=== PATIENT | female | born 1970 | race Caucasian/White ===

== ENCOUNTER → 2018-02-08 15:45 | Outpatient (CLI) | payer BC, SELFPAY ==
--- NOTE | 2018-02-08 15:50 | RAD_ITS ---
STUDY: X-RAY CHEST REASON FOR EXAM: Female, 47 years old. Shortness breath for 6 months. Cough. TECHNIQUE: PA and lateral views of the chest. COMPARISON: March 28, 2004. FINDINGS: The lungs are clear and expanded. There is no demonstrated pleural abnormality. Normal size heart. Normal mediastinum and daren. Normal visualized pulmonary arteries. Normal visualized aortic arch and descending thoracic aorta. Normal visualized thoracic spine. Normal visualized ribs, clavicles, and shoulders. There is no demonstrated abnormality of the visualized soft tissue structures of the upper abdomen. RAD/Chest PA and Lateral IMPRESSION: No acute cardiopulmonary disease or major interval change. Electronically Signed: Harinder Mg DO at 16:13 EDT Tel [phone], Service support ,
[2018-02-08 17:13] LABS: Absolute Lymphocyte Count 2.14 X10^3/ul (0.83-4.51); Absolute Neutrophil Count 6.3 X10^3/uL (2.0-7.7); Basophil# 0.02 X10^3/uL; Basophil% 0.2 % (0-1); Eosinophil# 0.23 X10^3/uL; Eosinophils% 2.5 % (0-5); Hemoglobin 13.7 g/dl (12.0-15.0); Lymphocyte # 2.14 X10^3/ul (4.0); Lymphocyte % 23.4 % (19-41); Mean Corp Hgb Conc 32.6 g/gl (32-36); Mean Corpuscular Hgb 27.6 pg (27.0-32.0); Mean Corpuscular Volume 84.5 fL (81-99); Mean Platelet Vol. 9.5 fl (6.2-12.0); Monocyte% 5.5 % (0-10); Neutrophil # 6.26 X10^3/uL (2.7-7.7); Neutrophil % 68.3 % (47-70); Platelet Count 440 K/mm3 (150-450); RBC Distribution Width CV 13.7 % (11.6-14.6); RBC Distribution Width SD 41.9 fl (35.1-43.9); Red Blood Count 4.97 M/mm3 (4.2-5.4); White Blood Count 9.2 K/mm3 (4.4-11.0)
[2018-02-08 17:14] LABS: POSITIVE COUNT NO; POSITIVE DIFFERENTIAL NO; POSITIVE MORPHOLOGY NO
[2018-02-08 17:23] LABS: D-Dimer Quantitative (DVT/PE) < 0.27 FEU/ug/m (0.27-0.49)
[2018-02-08 17:28] LABS: ALB/GLOB Ratio 0.9 RATIO (0.9-2.4); AST(SGOT) 17 U/L (15-37); Alanine Aminotransfer ALT/SGPT 22 U/L (13-56); Alkaline Phosphatase 113 U/L (45-117); Anion Gap 9 (5-15); BUN 12 mg/dL (7-18); BUN/Creat Ratio 17.1 RATIO (10-20); Calcium,Total 8.5 mg/dL (8.5-10.1); Chloride 103 mmol/L (98-107); EST Glomerular Filtration Rate 94 mL/min (>60); Est Glom Filt Rate - Afr Amer 114 mL/min (>60); Ferritin 4 ng/mL (8-252); Globulin 4.6 g/dL (2.2-4.2); Glucose 104 mg/dL (74-106); Iron 36 ug/dL (50-170); Potassium 3.9 mmol/L (3.5-5.1); Protein, Total 8.6 g/dL (6.4-8.2); Sodium Level 143 mmol/L (136-145)
[2018-02-08 17:34] LABS: Vitamin B12 321 pg/mL (211-911)
== END ==
PROVIDERS: Family Provider Family Medicine; PCP Family Medicine; Visit Provider Family Medicine
DX: R05 Cough (principal); D50.9 Iron deficiency anemia, unspecified; R06.00 Dyspnea, unspecified; R53.83 Other fatigue
CPT/HCPCS: 36415; 71046; 80053; 82607; 82728; 83540; 85025; 85379

== ENCOUNTER → 2018-03-06 12:52 | Outpatient (CLI) | payer BC, SELFPAY ==
--- NOTE | 2018-03-06 12:54 | STE_ITS ---
Reason For Study: Dyspnea; Family HX of CAD Stress Results Protocol: Rakesh Protocol Maximum Predicted HR: 172 bpm Target HR: 146 bpm% Max imum Predicted HR: 101 % DurationHeart Rate Stage (mm:ss) (bpm) BPCom ment Baseline 72 140/88 No Chest Pain Rakesh Protocol Stage I 3:00 14 8 154/80No Chest Pain; Mild Dyspnea Rakesh Protocol Stage II 3:00 17 3 164/86No Chest Pain; Mild Dyspnea; Leg Pain Recovery 104 142/9 2No Chest Pain Stress Duration: 6:00 mm:ss Maximum Stress HR: 173 bpmM ETS: 7 Baseline Echocardiogram Findings The estimated ejection fraction is 65 %. Stress Echo Wall motion Data Resting WMIntermediate WMStress WM Resting Wall Motion Wall Motion Stress No regional wall motion No regional wall motion abnormalities noted. abnormalities noted. EKG Data Normal intervals are noted. The patient exercised according to the regular Rakesh protocol for a total duration of 6:00. The maximum heart rate attained was 187 beats per minute. This was 108% of maximum predicted heart rate. The patient exercised into stage 3 of the Rakesh protocol. During stress, there were no ST or T wave changes noted to suggest ischemia. No clinical angina was noted. Interpretation Summary The estimated ejection fraction is 65 %. Normal, adequate, treadmill echocardiogram. Negative for ischemia by EKG and echocardiographic criteria. No anginal symptoms noted. Rare PACs noted. Average exercise capacity for age. Appropriate blood pressure response to exercise. Final LVEF is 75%. No complications. Ordering Physician: Chuy Mishra Referring Physician: Luis Cruz Performed By: Sherine Albert RDCS
== END ==
PROVIDERS: Family Provider Family Medicine; PCP Family Medicine; Visit Provider Family Medicine
DX: R06.00 Dyspnea, unspecified (principal); R53.83 Other fatigue
CPT/HCPCS: 93017; 93350

== ENCOUNTER → 2019-04-08 06:13 | Outpatient (CLI) | payer BC, SELFPAY ==
[2019-04-08 07:05] LABS: Absolute Lymphocyte Count 2.09 X10^3/uL (0.83-4.51); Absolute Neutrophil Count 5.3 X10^3/uL (2.0-7.7); Basophil# 0.04 X10^3/uL; Basophil% 0.5 % (0-1); Eosinophil# 0.25 X10^3/uL; Hematocrit 38.5 % (37-47); Hemoglobin 12.3 g/dL (12.0-15.0); Lymphocyte # 2.09 X10^3/ul (4.0); Lymphocyte % 25.3 % (19-41); Mean Corp Hgb Conc 31.9 g/dL (32-36); Mean Corpuscular Hgb 26.2 pg (27.0-32.0); Mean Corpuscular Volume 82.1 fL (81-99); Mean Platelet Vol. 9.4 fl (6.2-12.0); Monocyte# 0.52 X10^3/uL; Monocyte% 6.3 % (0-10); NRBC Flagged by Analyzer 0 % (0-5); Neutrophil # 5.34 X10^3/uL (2.7-7.7); Neutrophil % 64.5 % (47-70); Platelet Count 410 K/mm3 (150-450); RBC Distribution Width CV 14.3 % (11.6-14.6); RBC Distribution Width SD 41.5 fl (35.1-43.9); Red Blood Count 4.69 M/mm3 (4.2-5.4); White Blood Count 8.3 K/mm3 (4.4-11.0)
[2019-04-08 07:16] LABS: Microalbumin,Random Urine 10.6 mg/L (NO RANGE EST.); Microalbumin:Creatinine Ratio 10.6 mg/g CRE (<30 mg/g CRE)
[2019-04-08 07:27] LABS: ALB/GLOB Ratio 0.7 RATIO (0.9-2.4); AST(SGOT) 14 U/L (15-37); Alanine Aminotransfer ALT/SGPT 17 U/L (13-56); Albumin, Serum 3.4 g/dL (3.2-5.0); Alkaline Phosphatase 115 U/L (45-117); Anion Gap 3 (5-15); BUN 11 mg/dL (7-18); BUN/Creat Ratio 19.2 RATIO (10-20); Calcium,Total 8.6 mg/dL (8.5-10.1); Chloride 108 mmol/L (98-107); Cholesterol 258 mg/dL (200); Creatinine, Serum 0.57 mg/dL (0.55-1.02); EST Glomerular Filtration Rate 119 mL/min (>60); Est Glom Filt Rate - Afr Amer 144 mL/min (>60); Ferritin 4 ng/mL (8-252); Globulin 4.7 g/dL (2.2-4.2); Glucose 87 mg/dL (74-106); High Density Lipoprotein 65 mg/dL; Iron 28 ug/dL (50-170); Potassium 4.1 mmol/L (3.5-5.1); Protein, Total 8.1 g/dL (6.4-8.2); Sodium Level 140 mmol/L (136-145); T4 Free Direct 1.04 ng/dL (0.76-1.46); Thyroid Stim Hormone (TSH) 3.32 uIU/mL (0.358-3.74); Triglycerides 175 mg/dL; Very Low Density Lipoprotein 35 mg/dL (5-40)
[2019-04-08 08:50] LABS: Vitamin B12 305 pg/mL (211-911)
== END ==
PROVIDERS: Family Provider Family Medicine; PCP Family Medicine; Referring Provider Family Medicine; Visit Provider Family Medicine
DX: Z00.00 Encounter for general adult medical examination without abnormal findings (principal); D50.9 Iron deficiency anemia, unspecified; E53.8 Deficiency of other specified B group vitamins; R53.83 Other fatigue; I10 Essential (primary) hypertension
CPT/HCPCS: 36415; 80053; 80061; 82043; 82570; 82607; 82728; 83540; 84439; 84443; 85025

== ENCOUNTER → 2019-04-25 10:36 | Outpatient (CLI) | payer BC, SELFPAY | PROVIDERS: Family Provider Family Medicine; PCP Family Medicine; Visit Provider Family Medicine | DX: N39.0 Urinary tract infection, site not specified (principal) | CPT/HCPCS: 87077; 87086; 87088; 87186 ==

== ENCOUNTER → 2019-06-19 10:52 | Outpatient (CLI) | payer BC, SELFPAY ==
--- NOTE | 2019-06-19 10:54 | BI_ITS ---
MAMMOGRAPHY - BILATERAL SCREENING REASON FOR EXAM: Female, 48 years old. Routine annual screening examination. PERTINENT HISTORY: Non-contributory. TECHNIQUE: Digital bilateral breast abby (3D mammographic acquisition) in the CC and MLO projections. 2-D mediolateral oblique (MLO) and craniocaudad (CC) views of both breasts were obtained. CAD: Full Field Digital Mammography with Computer Added Detection was performed. COMPARISON: Comparison is made with prior outside examination dated February 25, 2008. FINDINGS: Breast Composition: There are scattered areas of fibroglandular density. There are no dominant masses or suspicious calcifications. Stable benign-appearing bilateral axillary lymph nodes. No other significant abnormalities are identified. There has been no significant change since the prior study. BI/SCREEN MAMM (CAD) W/ABBY BILAT IMPRESSION: Stable bilateral screening mammogram. Yearly follow-up mammogram recommended. (A) ASSESSMENT CATEGORY: BIRADS Category 2: Benign. A letter regarding these results will be sent to the patient by the facility within 30 days. Approximately 10% of breast cancers are not detected by mammography. A normal mammogram should not delay biopsy of a clinically suspicious abnormality. [id number] Electronically Signed: Scott Darnell, at 12:40 EDT , Service support ,
== END ==
PROVIDERS: Family Provider Family Medicine; PCP Family Medicine; Referring Provider Family Medicine; Visit Provider Family Medicine
DX: Z12.31 Encounter for screening mammogram for malignant neoplasm of breast (principal)
CPT/HCPCS: 77063; 77067

== ENCOUNTER 2020-11-12 13:35 | Outpatient (RCR) | payer BC, SELFPAY | END 2021-01-25 23:59 | LOC: IMMUN 13:35 | PROVIDERS: PCP Family Medicine; Visit Provider Family Medicine | DX: Z23 Encounter for immunization (principal) | CPT/HCPCS: 0001A; 0002A; 91300 ==

== ENCOUNTER 2021-11-22 14:41 | Outpatient (CLI) | payer BC, SELFPAY ==
--- NOTE | 2021-11-22 14:53 | BI_ITS ---
MAMMOGRAPHY - BILATERAL SCREENING REASON FOR EXAM: Female, 51 years old. Routine annual screening examination. PERTINENT HISTORY: Non-contributory. TECHNIQUE: Digital bilateral breast abby (3D mammographic acquisition) in the CC and MLO projections. 2-D mediolateral oblique (MLO) and craniocaudad (CC) views of both breasts were obtained. CAD: Full Field Digital Mammography with Computer Added Detection was performed. COMPARISON: Comparison is made with prior study 06/19/2019. FINDINGS: Breast Composition: There are scattered areas of fibroglandular density. There are no dominant masses or suspicious calcifications. No other significant abnormalities are identified. There has been no significant change since the prior study. BI/SCRN MAMM (CAD)W/ABBY BILAT IMPRESSION: Stable bilateral screening mammogram. Yearly follow-up mammogram recommended. (A) ASSESSMENT CATEGORY: BIRADS Category 1: Negative. A letter regarding these results will be sent to the patient by the facility within 30 days. Approximately 10% of breast cancers are not detected by mammography. A normal mammogram should not delay biopsy of a clinically suspicious abnormality. [id number] Electronically Signed: Scott Darnell MD at 15:47 EDT ,
== END 2021-11-22 23:59 | disposition home or self-care (01) ==
PROVIDERS: PCP Family Medicine; Referring Provider Family Medicine; Visit Provider Family Medicine
DX: Z12.31 Encounter for screening mammogram for malignant neoplasm of breast (principal)
CPT/HCPCS: 77063; 77067

== ENCOUNTER 2021-11-30 08:28 | Outpatient (CLI) | payer BC, SELFPAY ==
[2021-11-30 08:36] VITALS: BP 155/70; PULSE 68; RESP 16; TEMP 36.1; O2SAT 100; BMI 37.2
[2021-11-30] MEDS: 0.9% NaCl Peripheral Flush Adult/Peds IV (08:51)
[2021-11-30] MEDS: 0.9% NaCl IVPB Med Flush (250 mL) 15 ML IV (08:58)
[2021-11-30] MEDS: Sodium Ferric Gluconat 250 MG in 0.9% Normal Saline 250 ML 135 MG IV (08:58)
[2021-11-30 11:33] VITALS: BP 143/91; PULSE 59; RESP 16; TEMP 36.6; O2SAT 100
== END 2021-11-30 23:59 | disposition home or self-care (01) ==
LOC: MEDOUTP 08:30
PROVIDERS: PCP Family Medicine; Referring Provider Family Medicine; Visit Provider Family Medicine
DX: Z98.84 Bariatric surgery status (principal)
CPT/HCPCS: 96365; 96366; J7050; A4216; J2916

== ENCOUNTER → 2021-12-14 | Outpatient (CLI) | payer BC, SELFPAY ==
[2021-12-14 08:28] VITALS: BP 174/70; PULSE 66; RESP 12; TEMP 36.7; O2SAT 99; BMI 38.0
[2021-12-14] MEDS: 0.9% NaCl Peripheral Flush Adult/Peds IV (08:36)
[2021-12-14] MEDS: 0.9% NaCl IVPB Med Flush (250 mL) 15 ML IV (08:38)
[2021-12-14] MEDS: Sodium Ferric Gluconat 250 MG in 0.9% Normal Saline 250 ML 135 MG IV (08:41)
== END | disposition home or self-care (01) ==
LOC: MEDOUTP 08:23
PROVIDERS: PCP Family Medicine; Referring Provider Family Medicine; Visit Provider Family Medicine
DX: Z98.84 Bariatric surgery status (principal)
CPT/HCPCS: 96365; 96366; J7050; A4216; J2916

== ENCOUNTER → 2021-12-28 | Outpatient (CLI) | payer BC, SELFPAY ==
[2021-12-28 08:24] VITALS: BP 151/72; PULSE 91; RESP 16; TEMP 37; O2SAT 98; BMI 37.2
[2021-12-28] MEDS: 0.9% NaCl Peripheral Flush Adult/Peds IV (08:33)
[2021-12-28] MEDS: 0.9% NaCl IVPB Med Flush (250 mL) 15 ML IV (08:37)
[2021-12-28] MEDS: Sodium Ferric Gluconat 250 MG in 0.9% Normal Saline 250 ML 135 MG IV (08:39)
[2021-12-28 11:06] VITALS: BP 148/78; PULSE 59; RESP 16; TEMP 37.1; O2SAT 99
== END | disposition home or self-care (01) ==
LOC: MEDOUTP 08:19
PROVIDERS: PCP Family Medicine; Referring Provider Family Medicine; Visit Provider Family Medicine
DX: Z98.84 Bariatric surgery status (principal)
CPT/HCPCS: 96365; 96366; J7050; A4216; J2916

== ENCOUNTER 2022-01-13 05:19 | Day surgery (SDC) | payer BC, SELFPAY ==
[2022-01-13] VITALS (11 sets, daily range): BP systolic 108–157; BP diastolic 60–88; PULSE 54–73; RESP 16–18; TEMP 36.5–36.7; O2SAT 90–100; BMI 36.6
[2022-01-13] MEDS: Lactated Ringers 1,000 ML 15 ML IV (05:59)
--- NOTE | 2022-01-13 06:21 | HP.PCM_ITS ---
HPI - General HPI Narrative AXEL HUTCHINS, is a 51 F who presents for screening colonoscopy today. She had a remote 1 in 2003. Family history notable for mother with colon polyps. The patient states that she always has irritable bowel count of symptoms. In 2005 she had gastric bypass surgery. She denies any change in abdominal pain. No bright red blood per rectum or melena. She presents via open access today. [facility] Medical History (Updated 01/10/22 @ 09:35 by Christina Ann) Anemia Fatigue GERD (gastroesophageal reflux disease) HEADACHES High cholesterol History of echocardiogram History of stress test Hyperlipidemia Hypertension Iron deficiency Iron deficiency anemia Migraine headache Night sweats Non-smoker Palpitations Polycystic ovarian syndrome Post-menopausal SOB (shortness of breath) Wears glasses Home Medications B-complex with vitamin C 500 mg PO DAILY 08/17/15 [History Last Taken Unknown] cholecalciferol (vitamin D3) 5,000 unit PO DAILY 08/17/15 [History Last Taken Unknown] cyanocobalamin (vitamin B-12) 5,000 mcg SUBLINGUAL DAILY 08/17/15 [History Last Taken Unknown] ferrous sulfate 325 mg PO BID 11/13/16 [History Last Taken Unknown] Allergy/AdvReac Type Severity Reaction Status Date / Time No Known Allergies Allergy Verified 01/13/22 05:48 Family History Mother Skin cancer HEADACHES Arthritis Father Lung cancer Heart disease Hypertension Surgical History (Updated 01/10/22 @ 09:35 by Christina Ann) History of cholecystectomy History of gastric bypass Hx of tonsillectomy Hx of tooth extraction Social History Smoking Status: Never smoker alcohol intake: current alcohol intake frequency: holidays/special occasions only ROS Constitutional Constitutional: Reports systems reviewed and no addt'l complaints, except as documented Cardiovascular Cardiovascular: Denies chest pain Respiratory/Chest Respiratory/Chest: Denies shortness of breath at rest Gastrointestinal Gastrointestinal: Denies abdominal pain, change in bowel habits, hematochezia or melena Vital Signs Vital Signs Vital Signs: 01/13/22 05:49 01/13/22 05:51 Temperature 98.1 F Temperature Source Temporal Pulse Rate 69 Respiratory Rate 18 Respiratory Pattern Normal Blood Pressure 142/88 H Blood Pressure Mean 106 Blood Pressure Source Monitor Blood Pressure Position Semi-Fowlers Blood Pressure Location Left Arm Pulse Ox 100 Oxygen Delivery Method Room Air Weight Weight: 206 lb 9.6 oz Body Mass Index (BMI) 36.6 Physical Exam Const alert, oriented x3 and no apparent distress General Appearance: cooperative and comfortable Eyes General Eye: normal appearance of both eyes Neck General: normal visual inspection Chest inspection of chest normal Resp Effort and Inspection: able to speak in complete sentences and symmetric chest movement Auscultation: clear to auscultation bilaterally Cardio regular rate and regular rhythm GI soft to palpation, non-tender and non-distended Extremity no calf tenderness Neuro oriented x3 Psych thought process normal Assessment & Plan Assessment/Plan (1) Encounter for screening for malignant neoplasm of colon: PLAN: The patient presents via open access for screening colonoscopy with possible biopsy or polypectomy as indicated. She is aware of the technique, benefit, risk, alternatives. She has had an opportunity to ask and have questions answered. We will proceed as noted. Nnamdi Chávez M.D., F.A.C.S.
[2022-01-13] MEDS: Midazolam 5 MG/ML Syringe (06:40)
--- NOTE | 2022-01-13 06:58 | OP.COLON_ITS ---
Patient Name: Nisha Bain Procedure Date: 01/13/2022 6:17 AM Date of : 1970 Age: 51 Procedure: Colonoscopy Indications: Screening for colorectal malignant neoplasm Providers: Nnamdi Chávez MD Medicines: Midazolam 3.5 mg IV, Meperidine 100 mg IV Patient Profile: Last Colonoscopy: 2003. Complications: No immediate complications. Procedure: Pre-Anesthesia Assessment: - Prior to the procedure, a History and Physical was performed, and patient medications and allergies were reviewed. The patient's tolerance of previous anesthesia was also reviewed. The risks and benefits of the procedure and the sedation options and risks were discussed with the patient. All questions were answered, and informed consent was obtained. Prior Anticoagulants: The patient has taken no previous anticoagulant or antiplatelet agents. ASA Grade Assessment: II - A patient with mild systemic disease. After reviewing the risks and benefits, the patient was deemed in satisfactory condition to undergo the procedure. After I obtained informed consent, the scope was passed under direct vision. Throughout the procedure, the patient's blood pressure, pulse, and oxygen saturations were monitored continuously. The colonoscope was introduced through the anus and advanced to the cecum, identified by appendiceal orifice and ileocecal valve. The colonoscopy was performed without difficulty. The patient tolerated the procedure well. The quality of the bowel preparation was good. The ileocecal valve and the appendiceal orifice were photographed. Moderate Sedation: Moderate (conscious) sedation was personally administered by the endoscopist. The following parameters were monitored: oxygen saturation, heart rate, blood pressure, and response to care. Total physician intraservice time was 15 minutes. Scope In: 6:43:42 AM Scope Withdrawal Time 0 hours 6 minutes 22 seconds Scope Out: 6:53:37 AM Total Procedure Duration Time 0 hours 9 minutes 55 seconds Findings: The digital rectal exam findings include non-thrombosed internal hemorrhoids and internal hemorrhoids that prolapse with straining, but spontaneously regress to the resting position (Grade II). Multiple diverticula were found in the sigmoid colon and descending colon. The exam was otherwise without abnormality. Impression: - Non-thrombosed internal hemorrhoids and internal hemorrhoids that prolapse with straining, but spontaneously regress to the resting position (Grade II) found on digital rectal exam. - Diverticulosis in the sigmoid colon and in the descending colon. - The examination was otherwise normal. - No specimens collected. Recommendation: - Discharge patient to home. - Resume previous diet. - Continue present medications. - Repeat colonoscopy in 10 years for screening purposes. Procedure Code(s): --- Professional --- 25900, Colonoscopy, flexible; diagnostic, including collection of specimen(s) by brushing or washing, when performed (separate procedure) 01116, 59, Moderate sedation services provided by the same physician or other qualified health health care assistant performing the diagnostic or therapeutic service that the sedation supports, requiring the presence of an independent trained observer to assist in the monitoring of the patient's level of consciousness and physiological status; initial 15 minutes of intraservice time, patient age 5 years or older Diagnosis Code(s): --- Professional --- Z12.11, Encounter for screening for malignant neoplasm of colon K64.1, Second degree hemorrhoids K57.30, Diverticulosis of large intestine without perforation or abscess without bleeding CPT copyright 2017 [employer]. All rights reserved. The codes documented in this report are preliminary and upon satin finisher review may be revised to meet current compliance requirements. Nnamdi Chávez MD 01/13/2022 6:57:43 AM This report has been signed electronically. Number of Addenda: 0 Note Initiated On: 01/13/2022 6:17 AM
--- NOTE | 2022-01-13 06:59 | OP.CCLET_ITS ---
01/13/2022 Chuy Mishra [address] [place] [address] Re : Colonoscopy procedure for Nisha Bain Dear Dr. Mishra This procedure was performed on Thursday, January 13, 2022. My impressions and recommendations are as follows: Impressions : - Non-thrombosed internal hemorrhoids and internal hemorrhoids that prolapse with straining, but spontaneously regress to the resting position (Grade II) found on digital rectal exam. - Diverticulosis in the sigmoid colon and in the descending colon. - The examination was otherwise normal. - No specimens collected. Recommendations : - Discharge patient to home. - Resume previous diet. - Continue present medications. - Repeat colonoscopy in 10 years for screening purposes. My findings are described in the full procedure note, which is enclosed. If I can be of further assistance, please feel free to contact me at Doctor phone number(s): Work: . Sincerely, Nnamdi Chávez MD 01/13/2022 6:57:43 AM This report has been signed electronically.
== END 2022-01-13 07:50 | disposition home or self-care (01) ==
LOC: EN 05:20 → AC 05:21
PROVIDERS: PCP Family Medicine; Referring Provider Family Medicine; Visit Provider Surgery
PROC: 0DJD8ZZ Inspection of Lower Intestinal Tract, Via Natural or Artificial Opening Endoscopic (ICD-10-PCS; CPT 45378; principal; 2022-01-13 06:25)
DX: Z12.11 Encounter for screening for malignant neoplasm of colon (principal); K57.30 Diverticulosis of large intestine without perforation or abscess without bleeding; E78.5 Hyperlipidemia, unspecified; I10 Essential (primary) hypertension; E78.00 Pure hypercholesterolemia, unspecified; K64.1 Second degree hemorrhoids; Z98.84 Bariatric surgery status
CPT/HCPCS: 45378; 99152; 99153; J7120

== ENCOUNTER → 2022-01-25 | Outpatient (CLI) | payer BC, SELFPAY ==
[2022-01-25 08:32] VITALS: BP 145/69; PULSE 65; RESP 16; TEMP 36.4; O2SAT 100
[2022-01-25] MEDS: 0.9% NaCl Peripheral Flush Adult/Peds IV (08:35)
[2022-01-25] MEDS: Sodium Ferric Gluconat 250 MG in 0.9% Normal Saline 250 ML 135 MG IV (08:41)
[2022-01-25] MEDS: 0.9% NaCl IVPB Med Flush (250 mL) 15 ML IV (08:41)
[2022-01-25 11:17] VITALS: BP 155/85; PULSE 56; RESP 12; TEMP 36.8; O2SAT 98
== END | disposition home or self-care (01) ==
LOC: MEDOUTP 08:15
PROVIDERS: PCP Family Medicine; Referring Provider Family Medicine; Visit Provider Family Medicine
DX: Z98.84 Bariatric surgery status (principal)
CPT/HCPCS: 96365; 96366; J7050; A4216; J2916

== ENCOUNTER → 2022-02-09 | Outpatient (CLI) | payer BC, SELFPAY ==
[2022-02-09] MEDS: 0.9% NaCl IVPB Med Flush (250 mL) 15 ML IV (13:08)
[2022-02-09] MEDS: 0.9% NaCl Peripheral Flush Adult/Peds IV (13:08)
[2022-02-09 13:09] VITALS: BP 140/68; PULSE 68; RESP 16; TEMP 36.1; O2SAT 98
[2022-02-09] MEDS: Sodium Ferric Gluconat 250 MG in 0.9% Normal Saline 250 ML 135 MG IV (13:13)
[2022-02-09 15:39] VITALS: BP 136/64; PULSE 54; RESP 12; TEMP 35.9; O2SAT 100
== END | disposition home or self-care (01) ==
PROVIDERS: PCP Family Medicine; Referring Provider Family Medicine; Visit Provider Family Medicine
DX: Z98.84 Bariatric surgery status (principal)
CPT/HCPCS: 96365; 96366; J7050; A4216; J2916

== ENCOUNTER 2022-06-01 15:41 | Emergency (ER) | payer BC, SELFPAY ==
[2022-06-01 15:42] VITALS: BP 196/96; PULSE 95; RESP 18; TEMP 36.4; O2SAT 100; BMI 36.3
[2022-06-01 17:29] LABS: Absolute Lymphocyte Count 1.41 X10^3/uL (0.83-4.51); Absolute Neutrophil Count 5.7 X10^3/uL (2.0-7.7); Basophil# 0.04 X10^3/uL; Basophil% 0.5 % (0-1); Eosinophil# 0.11 X10^3/uL; Eosinophils% 1.4 % (0-5); Hematocrit 44.5 % (37-47); Hemoglobin 14.8 g/dL (12.0-15.0); Lymphocyte # 1.41 X10^3/ul (0.83-4.51); Lymphocyte % 18.5 % (19-41); Mean Corp Hgb Conc 33.3 g/dL (32-36); Mean Corpuscular Volume 87.3 fL (81-99); Mean Platelet Vol. 9.3 fl (6.2-12.0); Monocyte# 0.33 X10^3/uL; Monocyte% 4.3 % (0-10); NRBC Flagged by Analyzer 0 % (0-5); Neutrophil # 5.73 X10^3/uL (2.7-7.7); Neutrophil % 75.2 % (47-70); Platelet Count 366 K/mm3 (150-450); RBC Distribution Width CV 12.6 % (11.6-14.6); White Blood Count 7.6 K/mm3 (4.4-11.0)
[2022-06-01 17:49] LABS: Anion Gap 7 (5-15); BUN 8 mg/dL (7-18); BUN/Creat Ratio 13.5 RATIO (10-20); Calcium,Total 9.2 mg/dL (8.5-10.1); Chloride 108 mmol/L (98-107); Creatinine, Serum 0.59 mg/dL (0.55-1.02); EST Glomerular Filtration Rate 113 mL/min (>60); Est Glom Filt Rate - Afr Amer 136 mL/min (>60); Estimated Creatinine Clearance 92.27 ml/min; Glucose 107 mg/dL (74-106); Potassium 3.6 mmol/L (3.5-5.1); Sodium Level 141 mmol/L (136-145)
[2022-06-01 18:29] VITALS: BP 160/75; PULSE 79; RESP 18; O2SAT 98
[2022-06-01 18:30] VITALS: BP 154/62; PULSE 79; RESP 19; O2SAT 99
--- NOTE | 2022-06-01 19:27 | EDS_ITS ---
HPI History of Present Illness Chief Complaint: Hypertension Informant: patient Narrative Narrative: Patient had a headache last night, but she woke up without 1. Later in the day, she said that she felt like her blood pressure was elevated. She felt facial flushing, she could feel her pulse in her head without having a headache, and she just felt funny all over. She had no focal neurologic symptoms or vision changes, numbness, tingling, weakness, problems walking, or any diplopia. No chest pain or syncope or other symptoms. She states she feels normal now. When she was feeling poorly today, she checked her blood pressure and it was 221 systolic at 1 point and 231 at another which prompted her to come here. This is the first time she has felt this way since she had her blood pressure medication discontinued about 1.5 years ago because she was consistently on the low side at her doctor's office. She is on nothing for her blood pressure at this time. She states she has had a lot of emotional stress regarding work recently. When she arrived here in the ER, her blood pressure was 196/96 and at the time of my evaluation, she is asymptomatic and her blood pressure is 154/62. [facility] Medical History Anemia Fatigue GERD (gastroesophageal reflux disease) HEADACHES High cholesterol History of echocardiogram History of stress test Hyperlipidemia Hypertension Iron deficiency Iron deficiency anemia Migraine headache Night sweats Non-smoker Palpitations Polycystic ovarian syndrome Post-menopausal SOB (shortness of breath) Wears glasses Home Medications B-complex with vitamin C 500 mg PO DAILY 08/17/15 [History Last Taken Unknown] cholecalciferol (vitamin D3) 125 mcg (5,000 unit) capsule 5,000 unit PO DAILY 08/17/15 [History Last Taken Unknown] cyanocobalamin (vitamin B-12) 1,000 mcg/mL oral drops 5,000 mcg sublingual DAILY 08/17/15 [History Last Taken Unknown] clonidine HCl 0.1 mg tablet 0.1 - 0.3 mg PO TID PRN SBP > 175 #20 tabs 06/01/22 [Rx Last Taken Unknown] Allergy/AdvReac Type Severity Reaction Status Date / Time No Known Allergies Allergy Verified 06/01/22 15:41 Family History Mother Skin cancer HEADACHES Arthritis Father Lung cancer Heart disease Hypertension Surgical History History of cholecystectomy History of gastric bypass Hx of tonsillectomy Hx of tooth extraction Social History Smoking Status: Never smoker alcohol intake: current alcohol intake frequency: holidays/special occasions only ROS ROS ED Constitutional Constitutional ED: Denies chills or fever(s) Eyes Eyes: Denies change in vision or diplopia ENT ENT ED: Reports other Details: Facial flushing see HPI ; Denies rhinorrhea or sore throat Cardiovascular Cardiovascular: Denies chest pain or palpitations Respiratory/Chest Respiratory/Chest: Denies cough or dyspnea Gastrointestinal Gastrointestinal: Denies abdominal pain, diarrhea, nausea or vomiting Genitourinary Genitourinary ED: Denies dysuria or hematuria Musculoskeletal Musculoskeletal: Denies back pain or neck pain Integumentary Denies abscess or rash Neurologic Neurologic: Reports as per HPI and headache(s); Denies paresthesias or weakness Psychiatric Psychiatric: Denies anxiety or suicidal thoughts EXAM Physical Exam Const Vital Signs: 06/01/22 15:42 06/01/22 18:29 06/01/22 18:30 Temperature 97.5 F L Temperature Source Temporal Pulse Rate 95 79 Respiratory Rate 18 18 Respiratory Effort Normal Non-Labored Respiratory Pattern Normal Blood Pressure 196/96 H 160/75 H Blood Pressure Mean 129 103 Pulse Ox 100 98 Oxygen Delivery Method Room Air Room Air 06/01/22 18:30 Temperature Temperature Source Pulse Rate 79 Respiratory Rate 19 H Respiratory Effort Respiratory Pattern Blood Pressure 154/62 H Blood Pressure Mean 92 Pulse Ox 99 Oxygen Delivery Method Room Air Positive well nourished and well developed General Appearance ED: well developed and NAD HEENT Reports moist mucous membranes normocephalic and atraumatic Eyes PERRL and EOMs intact bilaterally Neck full ROM and supple Resp normal respiratory effort and clear to auscultation bilaterally Cardio regular rate, regular rhythm and no murmurs Rate: Negative for tachycardic GI non-tender and non-distended Auscultation: normoactive bowel sounds Palpation: soft Back/Spine no CVA tenderness General Back: other FROM Extremity normal to inspection General Extremety ED: Negative for edema, pulses abnormal or tenderness General Extremity: Negative for edema or pulses abnormal Neuro oriented x3, CN's II-XII intact bilaterally, no sensory deficits noted and gait normal Sensorium / Orientation: awake and alert Motor Exam: strength 5/5 throughout Psych mental status grossly normal Skin no rashes or lesions noted and no wounds MDM MDM MDM Narrative Medical decision making narrative: Patient labs are normal and her blood pressure remained controlled while being observed here in emergency department. I think under the circumstances, I do not want to commit her to blood pressure medicine long-term especially in order to avoid making her hypotensive. I think prescribing her clonidine to use as needed for further episodes would be reasonable for now to she can follow-up with her primary doctor and she is in agreement. Without the headache currently and/or neurologic symptoms, I do not think she needs a head CT which we discussed and she is in agreement. Lab Data Attestation: I reviewed the patient's lab results. Labs: Laboratory Results - last 24 hr 06/01/22 06/01/22 17:15 17:15 WBC 7.6 RBC 5.10 Hgb 14.8 Hct 44.5 MCV 87.3 MCH 29.0 MCHC 33.3 RDW Std Deviation 40.0 RDW Coeff of Rosmery 12.6 Plt Count 366 MPV 9.3 Immature Gran % (Auto) 0.100 Neut % (Auto) 75.2 H Lymph % (Auto) 18.5 L Aiken % (Auto) 4.3 Eos % (Auto) 1.4 Baso % (Auto) 0.5 Absolute Neuts (auto) 5.7 Absolute Lymphs (auto) 1.41 Nucleated RBC % 0 Sodium 141 Potassium 3.6 Chloride 108 H Carbon Dioxide 26.0 Anion Gap 7 BUN 8 Creatinine 0.59 Estim Creat Clear Calc 92.27 Est GFR (MDRD) Af Amer 136 Est GFR (MDRD) Non-Af 113 BUN/Creatinine Ratio 13.5 Glucose 107 H Calcium 9.2 Rhythm Strip Rhythm Strip: Sinus Rhythm Rate: 80 Ectopy: None Discharge Plan Triage Chief Complaint: Hypertension ED Provider: Eliseo Ramírez Dx/Rx/DC Orders Clinical Impression: Episode of hypertension Instructions: Hypertension Dc Prescriptions: New clonidine HCl 0.1 mg tablet 0.1 - 0.3 mg PO TID PRN (Reason: SBP > 175) Qty: 20 0RF No Action cholecalciferol (vitamin D3) 5,000 UNIT capsule 5,000 unit PO DAILY B-complex with vitamin C 1 EACH tablet 500 mg PO DAILY cyanocobalamin (vitamin B-12) 1,000 MCG/ML drops 5,000 mcg Sublingual DAILY Primary Care Provider: Chuy Mishra Referrals: Chuy Mishra, [Primary Care Provider] - As soon as possible Disposition Disposition: Home, Self Care
== END 2022-06-01 19:39 | disposition home or self-care (01) ==
PROVIDERS: Emergency Provider Emergency Medicine; PCP Family Medicine; Visit Provider Emergency Medicine
DX: I10 Essential (primary) hypertension (principal); E78.5 Hyperlipidemia, unspecified
CPT/HCPCS: 80048; 85025; 99283